=== PATIENT | female | born 1960 | race Caucasian/White ===

== ENCOUNTER 2017-10-14 14:17 | Emergency (ER) | payer OTHER ==
[~2017-10-14] VITALS: Ht 157.5 cm; Wt 113.4 kg
[2017-10-14] MEDS ORDERED: LANTUS100 UNIT/M SUBQ (14:33)
[2017-10-14] MEDS ORDERED: KLONOPIN0.5 MG PO (14:33)
[2017-10-14] MEDS ORDERED: MAGNESIUM500 MG PO (14:34)
[2017-10-14] MEDS ORDERED: MELATONIN10 M1 PO (14:34)
[2017-10-14] MEDS ORDERED: BIOTIN1 MG PO (14:34)
[2017-10-14] MEDS ORDERED: METFORMIN HCL500 MG PO (14:35)
[2017-10-14] MEDS ORDERED: VICTOZA0.6 MG/0.1 SUBQ (14:35)
[2017-10-14] MEDS ORDERED: ATORVASTATIN CA40 MG PO (14:35)
[2017-10-14] MEDS ORDERED: LISINOPRIL10 MG PO (14:35)
[2017-10-14] MEDS ORDERED: HYDROCODONE-AP1 EAC6 PO (15:31)
[2017-10-14 15:59] VITALS: BP 122/51
== END 2017-10-14 16:00 | disposition home or self-care (01) ==
LOC: M.ERS 14:17
DX: M25.562 Pain in left knee (principal); M25.512 Pain in left shoulder; J44.9 Chronic obstructive pulmonary disease, unspecified; G47.30 Sleep apnea, unspecified; E11.40 Type 2 diabetes mellitus with diabetic neuropathy, unspecified; F17.210 Nicotine dependence, cigarettes, uncomplicated; Z88.1 Allergy status to other antibiotic agents; Z88.0 Allergy status to penicillin; Z79.4 Long term (current) use of insulin

== ENCOUNTER 2017-12-30 19:11 | Emergency (ER) | payer OTHER ==
[~2017-12-30] VITALS: Ht 154.9 cm; Wt 108.9 kg
[~2017-12-30 19:11] MED LIST: ATORVASTATIN CA40 MG PO; BIOTIN1 MG PO; HYDROCODONE-AP1 EAC6 PO; KLONOPIN0.5 MG PO; LANTUS100 UNIT/M SUBQ; LISINOPRIL10 MG PO; MAGNESIUM500 MG PO; MELATONIN10 M1 PO; METFORMIN HCL500 MG PO; VICTOZA0.6 MG/0.1 SUBQ
[2017-12-30] MEDS ORDERED: CYMBALTA20 MG PO (19:24)
[2017-12-30] MEDS ORDERED: LAMICTAL 25 MG25 M1 PO (19:24)
[2017-12-30] MEDS ORDERED: ULTRAM 50MG TAB50 MG PO (21:08)
[2017-12-30] MEDS ORDERED: NORFLEX100 MG PO (21:08)
[2017-12-30 21:43] VITALS: BP 109/54
== END 2017-12-30 21:46 | disposition home or self-care (01) ==
LOC: M.ERS 19:11
DX: S91.302A Unspecified open wound, left foot, initial encounter (principal); J44.9 Chronic obstructive pulmonary disease, unspecified; E11.40 Type 2 diabetes mellitus with diabetic neuropathy, unspecified; G47.30 Sleep apnea, unspecified; Z79.4 Long term (current) use of insulin; Z88.0 Allergy status to penicillin; Z88.2 Allergy status to sulfonamides; W01.0XXA Fall on same level from slipping, tripping and stumbling without subsequent striking against object, initial encounter; Y93.89 Activity, other specified; Y92.89 Other specified places as the place of occurrence of the external cause; Y99.8 Other external cause status